=== PATIENT | female | born 1995 | race Caucasian/White ===

== ENCOUNTER 2021-06-28 16:54 | Emergency (ER) | payer OTHER ==
[2021-06-28 17:05] VITALS: BP 128/83; PULSE 119; TEMP 98.2; BMI 27.4
[2021-06-28 18:40] LABS: PH,URINE 5.5 (5.0-8.0); URINE APPEARANCE CLEAR; URINE BILIRUBIN NEGATIVE (NEGATIVE); URINE COLOR YELLOW; URINE GLUCOSE (UA) NEGATIVE (NEGATIVE); URINE KETONE TRACE (NEGATIVE); URINE LEUK ESTERASE NEGATIVE (NEGATIVE); URINE NITRITE NEGATIVE (NEGATIVE); URINE PROTEIN NEGATIVE (NEGATIVE); URINE UROBILINOGEN 0.2 mg/dL (0.2-1.0)
[2021-06-28 18:43] LABS: HCG,QUALITATIVE URINE Negative
[2021-06-28] MEDS ORDERED: IBUPROFEN 600 MG TABLET (FP) PO ONE ×2 (19:29→19:43)
== END 2021-06-28 19:53 | disposition home or self-care (01) ==
LOC: JER 16:54
DX: N83.202 Unspecified ovarian cyst, left side (principal)
CPT/HCPCS: 76775-TC; 76830-TC; 81003; 84703; 87086; 87186; 99285-25